=== PATIENT | male | born 1980 | race Caucasian/White ===

== ENCOUNTER 2024-12-11 10:49 | Emergency (ER) | payer OTHER ==
[2024-12-11] MEDS: Ketorolac 30 MG/ML SDV IM ONE (12:08)
[2024-12-11] MEDS: Methocarbamol 500 MG Tab PO ONE (12:10)
== END 2024-12-11 13:01 | disposition home or self-care (01) ==
LOC: JP.ED 10:49
DX: M54.42 Lumbago with sciatica, left side (principal); Z79.899 Other long term (current) drug therapy
CPT/HCPCS: 96372; 99283; A9270; J1885